=== PATIENT | male | born 1955 | race Caucasian/White ===

== ENCOUNTER → 2018-05-16 09:14 | Outpatient (CLI) | payer OTHER, SELFPAY ==
[2018-05-16 10:11] LABS: Add Manual Diff / Slide Review NO; Basophils Absolute Auto 0 /uL (0-100); Basophils Percent Auto 0.6 % (0-2); Eosinophils Absolute Auto 100 /uL (0-450); Eosinophils Percent Auto 2.1 % (2-4); Hemoglobin 14.7 g/dL (13.5-17.5); Lymphocytes Absolute Auto 2100 /uL (1100-4500); Lymphocytes Percent Auto 29.6 % (25-40); Mean Corpuscular HGB Conc 33.5 % (30-36); Mean Corpuscular Hemoglobin 30.8 PG (26-34); Monocytes Absolute Auto 800 /uL (0-900); Monocytes Percent Auto 11.9 % (3-14); Neutrophils Absolute Auto 3900 /uL (1500-7000); Neutrophils Percent Auto 55.8 % (50-75); Platelet Count 270 X10^3/uL (150-400); Red Blood Cell Count 4.78 X10^6/uL (4.5-5.9); Red Cell Distribution Width 13.4 % (11.6-14.8); White Blood Cell Count 6.9 X10^3/uL (4.5-11.0)
[2018-05-16 10:18] LABS: Alanine Aminotransferase 43 IU/L (21-72); Albumin 4.8 g/dL (3.5-5.0); Albumin Globulin Ratio 1.4 (1.0-2.8); Alkaline Phosphatase 36 U/L (38-126); Aspartate Aminotransferase 32 IU/L (17-59); BUN Creatinine Ratio 22.5 (6-22); Bilirubin Total 0.9 mg/dL (0.2-1.3); Blood Urea Nitrogen 27 mg/dL (9-20); Calcium 9.8 mg/dL (8.4-10.2); Carbon Dioxide 24 mmol/L (22-32); Chloride 100 mmol/L (98-107); Cholesterol 260 mg/dL (140-199); Estimated Glomerular Filt Rate > 60.0 mL/min (>60); Globulin 3.4 g/dL (1.7-4.1); Glucose 110 mg/dL (80-110); HDL Cholesterol 92 mg/dL (40-60); HEMOLYSIS < 15 (0-50); LDL Cholesterol Calculated 155 mg/dL (<100); Potassium 4.1 mmol/L (3.4-5.1); Sodium 136 mmol/L (137-145); Total Protein 8.2 g/dL (6.3-8.2); Triglycerides 67 mg/dL (35-150)
== END ==
PROVIDERS: PCP Family Medicine; Visit Provider Family Medicine
DX: E78.2 Mixed hyperlipidemia (principal)
CPT/HCPCS: 36415; 80053; 80061; 85025

== ENCOUNTER → 2018-10-23 17:16 | Outpatient (CLI) | payer OTHER, SELFPAY ==
[2018-10-23 17:37] LABS: Add Manual Diff / Slide Review NO; Basophils Absolute Auto 0 /uL (0-100); Basophils Percent Auto 0.5 % (0-2); Eosinophils Absolute Auto 100 /uL (0-450); Hematocrit 43.9 % (41-53); Lymphocytes Absolute Auto 2000 /uL (1100-4500); Lymphocytes Percent Auto 24.8 % (25-40); Mean Corpuscular HGB Conc 34.2 % (30-36); Mean Corpuscular Hemoglobin 30.4 PG (26-34); Monocytes Absolute Auto 700 /uL (0-900); Neutrophils Absolute Auto 5200 /uL (1500-7000); Neutrophils Percent Auto 64.7 % (50-75); Platelet Count 247 X10^3/uL (150-400); Red Blood Cell Count 4.94 X10^6/uL (4.5-5.9); Red Cell Distribution Width 12.6 % (11.6-14.8); White Blood Cell Count 8.1 X10^3/uL (4.5-11.0)
[2018-10-23 17:51] LABS: Alanine Aminotransferase 113 IU/L (21-72); Albumin 5.1 g/dL (3.5-5.0); Albumin Globulin Ratio 1.6 (1.0-2.8); Alkaline Phosphatase 47 U/L (38-126); Aspartate Aminotransferase 76 IU/L (17-59); BUN Creatinine Ratio 22.2 (6-22); Bilirubin Total 0.9 mg/dL (0.2-1.3); Blood Urea Nitrogen 20 mg/dL (9-20); Calcium 10.1 mg/dL (8.4-10.2); Carbon Dioxide 22 mmol/L (22-32); Chloride 95 mmol/L (98-107); Estimated Glomerular Filt Rate > 60.0 mL/min (>60); Globulin 3.2 g/dL (1.7-4.1); Glucose 84 mg/dL (80-110); HEMOLYSIS < 15 (0-50); Magnesium 1.4 mg/dL (1.6-2.3); Potassium 3.9 mmol/L (3.4-5.1); Sodium 133 mmol/L (137-145); Total Protein 8.3 g/dL (6.3-8.2)
[2018-10-23 18:21] LABS: Thyroid Stimulating Hormone 1.91 uIU/mL (0.47-4.68)
== END ==
PROVIDERS: PCP Family Medicine; Visit Provider Family Medicine
DX: I45.9 Conduction disorder, unspecified (principal); Z13.0 Encounter for screening for diseases of the blood and blood-forming organs and certain disorders involving the immune mechanism; Z13.1 Encounter for screening for diabetes mellitus; Z13.6 Encounter for screening for cardiovascular disorders
CPT/HCPCS: 36415; 80053; 83735; 84443; 85025; 93005; 93010

== ENCOUNTER 2018-11-08 06:47 | Day surgery (SDC) | payer OTHER, SELFPAY ==
[2018-11-08] MEDS: PROPARACAINE 0.5% OPHTH SOL 2 DROPS EYE-OP (07:46)
[2018-11-08] MEDS: CATARACT EYE COMPOUND (10 DROPS/SYRINGE) 3 DROPS EYE-OP (07:50)
[2018-11-08 07:55] VITALS: BP 150/81; PULSE 77; RESP 16; TEMP 36.6; O2SAT 100; BMI 29.2
--- NOTE | 2018-11-08 08:27 | PM.PREOP ---
Pre-operative Note Interval Note History & Physical reviewed/Exam performed by Physician: Yes Changes to H&P: No
[2018-11-08] MEDS: PHENYLEPHRINE/LIDOCAINE VIAL (OR) 0.2 ML EYE-OP (08:51)
[2018-11-08] MEDS: LIDOCAINE 2% INJ SDV 2 ML INJ (08:51)
[2018-11-08] MEDS: BALANCED SALT IRRIG SOLN NO.2 500 ML, EPINEPHrine 1 MG IRR (08:52)
[2018-11-08] MEDS: TETRACAINE 0.5% OPHTH DROPS 4 ML 2 DROPS EYE-OP (08:53)
[2018-11-08] MEDS: CHONDROIDTIN/SOD HYALURONATE 1.05 ML SYRINGE INTRAOCULA (08:54)
[2018-11-08] MEDS: BALANCED SALT IRRIG SOLN NO.2 15 ML 5 ML IRR (08:54)
[2018-11-08] MEDS: MOXIFLOXACIN/PF 5 MG/ML VIAL EYE-OP (08:55)
--- NOTE | 2018-11-08 09:20 | P.OP_ITS ---
Procedure & Clinicians Procedure: Cataract extraction with intraocular lens implant, left Same procedure as scheduled: Yes Indications: Visually significant age related nuclear sclerosis, left Surgeon: Terry Goode Click Yes if Unassisted: Yes Anesthesia Type: MAC +/- Operative Notes Procedure in detail: The patient was brought to the operating suite. The correct patient, surgical site and lens were confirmed. 0.5 % tetracaine drops were placed in the left eye. The patient was prepped and draped in the typical rachel rile manner. A lid speculum was placed in the eye. 2% lidocaine was placed on the eye. A paracentesis port was created with a side-port blade. 0.1 mL of 1% preservative free lidocaine with phenylephrine was injected into the anterior chamber. Viscoelastic was injected into the anterior chamber. A 2.6mm keratome was used to create a clear corneal temporal incision. Cystotome and Utrata forceps were used to create a continuous curvilinear capsulorrhexis. Balanced salt solution was used to hydrodissect the nucleus. Phacoemulsification was used to remove the lens. The capsular bag was inflated with viscoelastic. A Pineda ZCBOO +20.5D lens was inserted into the capsule. Viscoelastic was removed and the wound hydrated. The wound was found to be leak free and the eye was assessed to be at normal physiologic pressure. 0.1mL Vigamox was injected into the anterior chamber. The lid speculum was removed and the patient left the operating room in excellent condition. Complications: none Condition: stable Disposition: same day surgery
[2018-11-08 09:35] VITALS: BP 115/69; PULSE 68; RESP 20; TEMP 36.9; O2SAT 95
== END 2018-11-08 09:50 | disposition home or self-care (01) ==
PROVIDERS: PCP Family Medicine; Visit Provider Ophthalmology
PROC: (CPT 66984; principal; 2018-11-08 08:45)
DX: H25.12 Age-related nuclear cataract, left eye (principal); H25.11 Age-related nuclear cataract, right eye; H35.372 Puckering of macula, left eye; I10 Essential (primary) hypertension; E78.5 Hyperlipidemia, unspecified
CPT/HCPCS: 66984; J0171; J2250; J3010

== ENCOUNTER → 2018-11-14 09:05 | Outpatient (CLI) | payer OTHER, SELFPAY ==
--- NOTE | 2018-12-17 09:21 | PM.CARDMON.1 ---
Etl Manager Report Referral & Results Date Patient Seen: 11/14/18 Requesting provider: Nick Mitchell Indication: Palpitations Duration of monitoring (days): 14 Diary information: There were 0 diary entries from the patient but 149 different triggers. The triggers were associated with a variety of dysrhythmias including SVT, sinus rhythm, possible junctional rhythm, ventricular bigeminy, ventricular trigeminy, PVCs, and PACs. Data: Minimum heart rate identified was 52 beats per minute at 03:06 on 11/15/2018 Maximum sinus heart rate was 139 beats per minute at 01:12 30 17:00 on November 26, 2018 Maximum overall heart rate was 171 beats per minute at 13:17 on 11/15/2018 during a 1 hour 6 minutes run of SVT Less than 1% of identified beats were supraventricular ectopic in origin Approximately 2.3% of identified beats were ventricular ectopic in origin Patient did have 3 supraventricular runs with the longest and fastest being the above-listed run Impression: Patient with episodes of SVT as above Patient also with significant ventricular dysrhythmia with simple PVCs as well as runs of ventricular bigeminy and trigeminy although these lasted only 37 seconds at longest The computer identified some junctional rhythm episodes that upon closer inspection do not appear to be junctional but rather sinus
== END ==
PROVIDERS: PCP Family Medicine; Visit Provider Family Medicine
DX: R00.2 Palpitations (principal)
CPT/HCPCS: 0296T; 0298T

== ENCOUNTER 2018-11-15 13:17 | Emergency (ER) | payer OTHER, SELFPAY ==
[2018-11-15 13:24] VITALS: BP 165/81; PULSE 105; RESP 16; TEMP 36.8; O2SAT 99; BMI 23.0
--- NOTE | 2018-11-15 13:25 | DI.RAD.S_ITS ---
PROCEDURE: XR CHEST 1V INDICATIONS: chest pain TECHNIQUE: One view of the chest was acquired. COMPARISON: [facility], MR, ANGIO ABDOMEN W&WO CONTRAST, 01/29/2014, 9:32. FINDINGS: Surgical changes and devices: Left-sided cardiac pacer/goiter is present. Lungs and pleura: Lungs are clear. No pleural effusions or pneumothorax. Mediastinum: Mediastinal contours appear normal. Heart size is normal. Bones and chest wall: No suspicious bony lesions. Overlying soft tissues appear unremarkable. IMPRESSION: No acute cardiopulmonary process is evident. Dictated by: Audie Otero M.D. on 11/15/2018 at 12:48 Approved by: Audie Otero M.D. on 11/15/2018 at 12:48
[2018-11-15 13:30] LABS: Add Manual Diff / Slide Review NO; Basophils Absolute Auto 100 /uL (0-100); Basophils Percent Auto 0.8 % (0-2); Eosinophils Absolute Auto 100 /uL (0-450); Eosinophils Percent Auto 1.1 % (2-4); Hematocrit 44.2 % (41-53); Hemoglobin 15.2 g/dL (13.5-17.5); Lymphocytes Absolute Auto 2100 /uL (1100-4500); Lymphocytes Percent Auto 25.3 % (25-40); Mean Corpuscular HGB Conc 34.3 % (30-36); Mean Corpuscular Hemoglobin 30.7 PG (26-34); Mean Corpuscular Volume 89.6 fL (80-100); Monocytes Absolute Auto 900 /uL (0-900); Monocytes Percent Auto 10.2 % (3-14); Neutrophils Absolute Auto 5300 /uL (1500-7000); Neutrophils Percent Auto 62.6 % (50-75); Platelet Count 246 X10^3/uL (150-400); Red Blood Cell Count 4.94 X10^6/uL (4.5-5.9); Red Cell Distribution Width 13.7 % (11.6-14.8); White Blood Cell Count 8.4 X10^3/uL (4.5-11.0)
[2018-11-15 13:41] LABS: INR 0.8 (0.9-1.3); Prothrombin Time 9.4 SECONDS (10.1-12.7)
[2018-11-15 13:44] LABS: PTT Partial Thromboplastin Tim 29 SECONDS (26.4-36.2)
[2018-11-15 13:51] LABS: Alanine Aminotransferase 133 IU/L (21-72); Albumin 5.1 g/dL (3.5-5.0); Albumin Globulin Ratio 1.5 (1.0-2.8); Alkaline Phosphatase 59 U/L (38-126); Aspartate Aminotransferase 94 IU/L (17-59); BUN Creatinine Ratio 20.8 (6-22); Bilirubin Total 0.9 mg/dL (0.2-1.3); Blood Urea Nitrogen 25 mg/dL (9-20); Calcium 10.2 mg/dL (8.4-10.2); Carbon Dioxide 18 mmol/L (22-32); Chloride 97 mmol/L (98-107); Creatine Kinase 201 U/L (55-170); Estimated Glomerular Filt Rate > 60.0 mL/min (>60); Globulin 3.5 g/dL (1.7-4.1); Glucose 109 mg/dL (80-110); HEMOLYSIS < 15 (0-50); Lipase 198 U/L (23-300); Potassium 4.1 mmol/L (3.4-5.1); Sodium 135 mmol/L (137-145); Total Protein 8.6 g/dL (6.3-8.2)
[2018-11-15 14:00] VITALS: BP 136/80; PULSE 84; RESP 20; O2SAT 97
[2018-11-15 14:02] LABS: Troponin I < 0.012 ng/mL (0.01-0.034)
[2018-11-15 14:07] LABS: CKMB % Relative Index 2.7 % (1.5-5.0); Creatine Kinase MB 5.41 ng/mL (<2.37)
[2018-11-15 14:30] VITALS: BP 119/77; PULSE 78; RESP 20; O2SAT 97
[2018-11-15 15:02] VITALS: BP 143/99; PULSE 81; RESP 23; O2SAT 100
--- NOTE | 2018-11-15 15:20 | ED.ARRPALP ---
HPI - Arrhythmia/Palpitations General Chief Complaint: Arrhythmia/Palpitations Stated Complaint: DIZZY AND HEART RACING Time Seen by Provider: 11/15/18 13:27 Source: patient and family Mode of arrival: ambulatory Limitations: no limitations History of Present Illness HPI narrative: Patient presents emergency department complaining of an episode of heart racing for approximately 30 minutes prior to arrival. He states he had a Holter monitor placed yesterday in our cardial abduct, and did record the episode, although he does not have a way to review the rhythm at this time. Patient denies any chest pain at the time. He states he did feel somewhat anxious. He has been having these episodes on and off for the last 3 weeks, and has seen Dr. Morales about this. 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 Patient states he feels completely normal. Related Data Home Medications Medication Instructions Recorded Confirmed gabapentin [Neurontin] 300 mg PO BID PRN 11/08/18 11/15/18 Co Q-10 1 cap PO DAILY 11/15/18 11/15/18 Vitamin B 1 tab PO DAILY 11/15/18 11/15/18 atorvastatin [Lipitor] 20 mg PO BEDTIME 11/15/18 11/15/18 ketorolac 1 drp OPHTHALMIC (EYE) DIRECTED 11/15/18 11/15/18 multivitamin 1 tab PO DAILY 11/15/18 11/15/18 prednisolone acetate 1 drp OPHTHALMIC (EYE) DIRECTED 11/15/18 11/15/18 Previous Rx's Medication Instructions Recorded amlodipine 5 mg tablet 5 mg PO BID #180 tab 02/27/18 losartan 50 mg tablet 50 mg PO BID #360 tab 02/27/18 metoprolol succinate 25 mg 25 mg PO BID #180 tab 02/27/18 tablet,extended release 24 hr spironolactone 25 mg tablet 25 mg PO BID #360 tab 02/27/18 Allergies Allergy/AdvReac Type Severity Reaction Status Date / Time No Known Drug Allergies Allergy Verified 11/15/18 13:24 Review of Systems Constitutional Constitutional: Denies chills, Denies fatigue, Denies fever(s), Denies frequent falls, Denies lethargy and Denies weakness Eyes Eyes: Denies change in vision, Denies eye discharge, Denies irritation and Denies loss of vision ENT Ears, Nose, Mouth, and Throat: Denies change in voice, Denies dizziness, Denies neck pain, Denies sore throat and Denies throat swelling Cardiovascular Cardiovascular: Denies chest pain, Denies irregular heart rhythm, Denies lightheadedness, Denies palpitations, Denies dyspnea, Denies dyspnea on exertion and Denies orthopnea Respiratory Respiratory: Denies cough, Denies dyspnea, Denies dyspnea on exertion and Denies wheezing Gastrointestinal Gastrointestinal: Denies abdominal pain, Denies change in bowel habits, Denies diarrhea, Denies nausea and Denies vomiting Genitourinary Genitourinary: Denies hematuria, Denies flank pain, Denies urinary incontinence and Denies urinary urgency Musculoskeletal Musculoskeletal: Denies back pain, Denies muscle weakness, Denies neck pain, Denies numbness and Denies tingling Integumentary/Breasts Skin/Breast: Denies pruritus, Denies erythema, Denies rash and Denies wounds Neurologic Neurologic: Denies behavioral changes, Denies confusion, Denies dizziness, Denies frequent falls, Denies loss of vision, Denies numbness, Denies tingling and Denies weakness Psychiatric Psychiatric: Denies anxiety, Denies behavioral changes, Denies confusion, Denies depression, Denies homicidal ideation and Denies suicidal ideation Endocrine Endocrine: Denies fatigue, Denies flushing and Denies palpitations Hematologic/Lymphatic Hematologic/Lymphatic: Denies easy bruising Allergic/Immunologic Allergic/Immunologic: Denies urticaria, Denies throat swelling and Denies wheezing [facility] Medical History Palpitations (Acute) Ventricular premature beats (Acute) Surgical History No pertinent past surgical history (Acute) Social History household members: spouse Smoking Status: Former smoker alcohol intake: current Social History household members: spouse Smoking Status: Former smoker alcohol intake: current Exam Initial Vital Signs Initial Vital Signs: Vital Signs Temperature 98.3 F 11/15/18 13:24 Pulse Rate 105 H 11/15/18 13:24 Respiratory Rate 16 11/15/18 13:24 Blood Pressure 165/81 H 11/15/18 13:24 Pulse Oximetry 99 11/15/18 13:24 Const General: cooperative and well developed Nutritional Appearance: well nourished Orientation: alert, awake, oriented x3 and not confused [facility] Head: normocephalic and atraumatic Ears: external ears normal Nose: external nose normal and No nasal discharge Face and sinus: face symmetric and No dry mucous membranes Mouth: oral mucosae normal and moist mucous membranes Teeth and gingiva: dentition normal Eyes General: appearance normal, both eyes and all related structures Eyelids: eyelids normal Conjunctivae: conjunctivae normal Sclera: sclerae normal Pupils: PERRL EOM: EOM intact bilaterally Neck Neck: normal visual inspection, trachea midline, No lymphadenopathy, No midline deformity and No JVD Lymphatic: No lymphedema Chest Chest: normal inspection of the chest Resp Effort & Inspection: normal respiratory effort, able to speak in complete sentences, no respiratory distress and no use of accessory muscles Auscultation: clear to auscultation bilaterally, no rales, no rhonchi and no wheezes Cardio Rate: regular rate Rhythm: regular rhythm Heart Sounds: no click, no gallops, no murmurs and no rubs Pulses: normal peripheral pulses GI Inspection: non-distended Palpation: soft, no hepatosplenomegaly, No guarding, No pulsatile mass and No tender Auscultation: normal bowel sounds Back/Spine/Pelvis Back: No CVA tenderness Cervical Spine: cervical ROM normal and No pain with cervical ROM Thoracic/Lumbar Spine: thoracic and lumbar spine normal to inspection Skin General: no rashes or lesions noted, No jaundice and No petechiae Neuro General: alert, oriented x3, gait normal and no focal motor deficits Speech: speech normal Extrem General: full ROM, no clubbing, cyanosis or edema, no pedal edema and no calf tenderness Psych Appearance: well kempt Mental Status: mental status grossly normal Attitude: cooperative Thought Content: normal and suicidality Judgment: judgment good Course Course Course Narrative: Patient was found to be in normal sinus rhythm with a normal rate upon arrival in the emergency department. He was worked up with laboratory studies, which were unremarkable. Twelve lead EKG was also unremarkable, other than occasional PVCs. The patient was kept on the alarm security or surveillance monitor in the emergency department, and was found to remain in normal sinus rhythm. The patient was without complaints during his stay, and reported feeling better. He has already been established with a Holter monitor, which was placed yesterday. I have checked with the respiratory and cardiac department, who has stated there is no way to interrogate the Holter monitor until the entire thing is sent in for evaluation. As such, we have not been able to determine what sort of rhythm the patient was in during the episode of racing heart. We have discussed home management of the symptoms, as well as the usual indications for return. Orders Ordered: ED Orders 11/15/18 13:20 EKG-12 Lead Stat 11/15/18 13:25 XR chest 1V Stat Complete Blood Count AUTO DIFF Stat Comprehensive Metabolic Panel Stat Lipase Stat Partial Thromboplastin Time Stat Prothrombin Time INR Stat Troponin & CK Cardiac Panel Stat Vital Signs Vital signs: Vital Signs - 8 hr 11/15/18 13:24 11/15/18 14:00 11/15/18 14:30 Temperature 98.3 F Pulse Rate 105 H 84 78 Respiratory Rate 16 20 20 Blood Pressure 165/81 H Blood Pressure [Right Arm] 136/80 119/77 Pulse Oximetry 99 97 97 11/15/18 15:02 Temperature Pulse Rate 81 Respiratory Rate 23 Blood Pressure Blood Pressure [Right Arm] 143/99 H Pulse Oximetry 100 MDM - Arrhythmia/Palpitations Medical Records Attestation: I reviewed the patient's medical records. Lab Data Attestation: I reviewed the patient's lab results. Result diagrams: 11/15/18 13:25 11/15/18 13:25 Labs: Lab Results 11/15/18 11/15/18 11/15/18 Range/Units 13:25 13:25 13:25 WBC 8.4 (4.5-11.0) X10^3/uL RBC 4.94 (4.5-5.9) X10^6/uL Hgb 15.2 (13.5-17.5) g/dL Hct 44.2 (41-53) % MCV 89.6 (80-100) fL MCH 30.7 (26-34) PG MCHC 34.3 (30-36) % RDW 13.7 (11.6-14.8) % Plt Count 246 (150-400) X10^3/uL Neut % (Auto) 62.6 (50-75) % Lymph % (Auto) 25.3 (25-40) % [place] % (Auto) 10.2 (3-14) % Eos % (Auto) 1.1 L (2-4) % Baso % (Auto) 0.8 (0-2) % Neut # (Auto) 5300 (7990-2632) /uL Lymph # (Auto) 2100 (7846-7024) /uL [place] # (Auto) 900 (0-900) /uL Eos # (Auto) 100 (0-450) /uL Baso # (Auto) 100 (0-100) /uL PT 9.4 L (10.1-12.7) SECONDS INR 0.8 L (0.9-1.3) APTT 29 (26.4-36.2) SECONDS Sodium 135 L (137-145) mmol/L Potassium 4.1 (3.4-5.1) mmol/L Chloride 97 L (98-107) mmol/L Carbon Dioxide 18 L (22-32) mmol/L BUN 25 H (9-20) mg/dL Creatinine 1.20 (0.66-1.25) mg/dL Estimated GFR > 60.0 (>60) mL/min BUN/Creatinine Ratio 20.8 (6-22) Glucose 109 (80-110) mg/dL Calcium 10.2 (8.4-10.2) mg/dL Total Bilirubin 0.9 (0.2-1.3) mg/dL AST 94 H (17-59) IU/L ALT 133 H (21-72) IU/L Alkaline Phosphatase 59 (38-126) U/L Total Creatine Kinase 201 H (55-170) U/L CK-MB (CK-2) 5.41 H (<2.37) ng/mL CK-MB (CK-2) Rel Index 2.7 (1.5-5.0) % Troponin I < 0.012 (0.01-0.034) ng/mL Total Protein 8.6 H (6.3-8.2) g/dL Albumin 5.1 H (3.5-5.0) g/dL Globulin 3.5 (1.7-4.1) g/dL Albumin/Globulin Ratio 1.5 (1.0-2.8) Lipase 198 (23-300) U/L Imaging Data Chest x-ray: Radiologist's impression: PROCEDURE: XR CHEST 1V INDICATIONS: chest pain TECHNIQUE: One view of the chest was acquired. COMPARISON: [facility], MR, ANGIO ABDOMEN W&WO CONTRAST, 01/29/2014, 9:32. FINDINGS: Surgical changes and devices: Left-sided cardiac pacer/goiter is present. Lungs and pleura: Lungs are clear. No pleural effusions or pneumothorax. Mediastinum: Mediastinal contours appear normal. Heart size is normal. Bones and chest wall: No suspicious bony lesions. Overlying soft tissues appear unremarkable. IMPRESSION: No acute cardiopulmonary process is evident. Dictated by: Audie Otero M.D. on 11/15/2018 at 12:48 Approved by: Audie Otero M.D. on 11/15/2018 at 12:48 ECG Data Attestation: I personally reviewed and interpreted this ECG as follows: (See below) Interpretation: Twelve lead EKG performed November 15, 2018 at 1:20 p.m., as follows: Regular ventricular rhythm with a rate of 93 beats per minute RI interval 171 millisecond QRS duration 106 millisecond QTC interval 385 milliseconds Occasional ectopy No significant ST T wave changes Interpretation: Normal sinus rhythm with frequent PVCs; normal axis; no signs of acute ischemia; abnormal EKG as interpreted by ED MD. Discharge Plan Departure Patient Disposition: Home Clinical Impression: Palpitations, Ventricular premature beats Discharge Date/Time: 11/15/18 15:32 Instructions: DI for Arrhythmias Activity Restrictions/Additional Instructions: Your labs look good, as does your EKG. Unfortunately, there is no way to interrogate your Holter monitor until the entire thing is sent in for evaluation. If you have any further episodes of tachycardia that do not seem to be resolving, or if you become severely lightheaded or you faint, or if you have chest pain or shortness of breath associated with the racing heart, please come back to the emergency department. Prescriptions: No Action amlodipine [Norvasc] 5 mg tablet 5 mg PO BID Qty: 180 RF: 3 losartan 50 mg tablet 50 mg PO BID Qty: 360 RF: 3 metoprolol succinate [Toprol XL] 25 mg tablet extended release 24 hr 25 mg PO BID Qty: 180 RF: 3 spironolactone 25 mg tablet 25 mg PO BID Qty: 360 RF: 3 gabapentin [Neurontin] 300 mg capsule 300 mg PO BID PRN (Reason: nerve pain) RF: 0 ketorolac 0.5 % Drops 1 drp OPHTHALMIC (EYE) DIRECTED RF: 0 prednisolone acetate 1 % Drops,Suspension 1 drp OPHTHALMIC (EYE) DIRECTED RF: 0 atorvastatin [Lipitor] 20 mg tablet 20 mg PO BEDTIME RF: 0 multivitamin Tablet 1 tab PO DAILY RF: 0 Co Q-10 1 cap PO DAILY RF: 0 Vitamin B 1 tab PO DAILY RF: 0 Referrals: Nick Mitchell MD [Primary Care Provider] -
[2018-11-15 15:31] VITALS: BP 143/99; PULSE 69; RESP 20; O2SAT 99
== END 2018-11-15 15:32 | disposition home or self-care (01) ==
PROVIDERS: Emergency Provider Emergency Medicine; PCP Family Medicine
DX: R00.2 Palpitations (principal); I49.3 Ventricular premature depolarization
CPT/HCPCS: 36591; 71045; 80053; 82550; 82553; 83690; 84484; 85025; 85610; 85730; 93005; 99283; 99285

== ENCOUNTER → 2019-03-14 09:54 | Outpatient (CLI) | payer MEDICARE, SELFPAY ==
--- NOTE | 2019-03-14 09:57 | DI.US.S_ITS ---
PROCEDURE: US ABDOMEN COMPLETE INDICATIONS: ABN LFT'S TECHNIQUE: Real-time scanning was performed of the abdominal and retroperitoneal organs, with image documentation. COMPARISON: None. FINDINGS: Liver: Liver is diffusely increased in echogenicity. No focal hepatic abnormalities identified. Normal hepatic size. Gallbladder: No gallstones identified. Normal gallbladder wall. No pericholecystic fluid. Negative sonographic Grullon sign. Biliary ducts: Intrahepatic bile ducts are non-dilated. Extrahepatic bile duct caliber measures 3.7 mm. Normal is 6-7 mm or less in diameter, or 10 mm or less post-cholecystectomy. Pancreas: Visualized portions of the pancreas are sonographically normal. Spleen: Spleen is normal in size and homogeneous in echotexture. Kidneys: Kidneys are normal in size and echotexture. Right kidney measures 10.5 cm long; left kidney measures 10.1 cm long. No hydronephrosis or nephrolithiasis. No solid masses. Aorta: Visualized aorta is normal in caliber at less than 3 cm. Iliacs: Proximal common iliac arteries are normal in caliber at less than 2.5 cm. IVC: Intrahepatic inferior vena cava is patent. Miscellaneous: No free abdominal fluid. IMPRESSION: Increased hepatic echogenicity noted possibly related to hepatic steatosis but other sources of hepatocellular disease including hepatic cirrhosis cannot be excluded. Recommend clinical correlation. Dictated by: Silvestre MERCADO Interpreted: Johanny Schaefer MD on 03/14/2019 at 11:30 Approved by: Johanny Schaefer M.D. on 03/14/2019 at 18:27
== END ==
PROVIDERS: PCP Family Medicine; Visit Provider Family Medicine
DX: R94.5 Abnormal results of liver function studies (principal); E78.2 Mixed hyperlipidemia; Z12.5 Encounter for screening for malignant neoplasm of prostate
CPT/HCPCS: 36415; 76700; 80061; G0103

== ENCOUNTER → 2019-03-14 10:20 | Outpatient (CLI) | payer MEDICARE, SELFPAY ==
[2019-03-14 11:15] LABS: Cholesterol 262 mg/dL (140-199); HDL Cholesterol 91 mg/dL (40-60); LDL Cholesterol Calculated 147 mg/dL (<100); Triglycerides 120 mg/dL (35-150)
[2019-03-14 11:47] LABS: Prostate Specific Antigen Scrn 2.95 ng/mL (0.1-4.0)
== END ==
PROVIDERS: PCP Family Medicine; Visit Provider Family Medicine
DX: E78.2 Mixed hyperlipidemia (principal)
CPT/HCPCS: 36415; 80061; G0103

== ENCOUNTER → 2019-07-18 08:45 | Outpatient (CLI) | payer MEDICARE, SELFPAY ==
[2019-07-18 10:37] LABS: Alanine Aminotransferase 33 IU/L (<50); Albumin 4.5 g/dL (3.5-5.0); Albumin Globulin Ratio 1.6 (1.0-2.8); Alkaline Phosphatase 34 U/L (38-126); Aspartate Aminotransferase 39 IU/L (17-59); Bilirubin Total 0.5 mg/dL (0.2-1.3); Bilirubin Unconjugated 0.3 mg/dL (0.0-1.1); Cholesterol 176 mg/dL (140-199); Globulin 2.9 g/dL (1.7-4.1); HDL Cholesterol 54 mg/dL (40-60); HEMOLYSIS < 15 (0-50); LDL Cholesterol Calculated 109 mg/dL (<100); Total Protein 7.4 g/dL (6.3-8.2); Triglycerides 67 mg/dL (35-150)
== END ==
PROVIDERS: PCP Family Medicine; Referring Provider Family Medicine; Visit Provider Family Medicine
DX: R94.5 Abnormal results of liver function studies (principal); E78.2 Mixed hyperlipidemia
CPT/HCPCS: 36415; 80061; 80076

== ENCOUNTER → 2020-01-13 09:44 | Outpatient (CLI) | payer MEDICARE, SELFPAY ==
[2020-01-13 10:34] LABS: Add Manual Diff / Slide Review NO; Basophils Absolute Auto 100 /uL (0-100); Basophils Percent Auto 0.9 % (0-2); Eosinophils Absolute Auto 200 /uL (0-450); Eosinophils Percent Auto 2.7 % (2-4); Hemoglobin 15.7 g/dL (13.5-17.5); Lymphocytes Absolute Auto 1400 /uL (1100-4500); Lymphocytes Percent Auto 22.7 % (25-40); Mean Corpuscular HGB Conc 33.5 % (30-36); Mean Corpuscular Hemoglobin 29.1 PG (26-34); Mean Corpuscular Volume 86.7 fL (80-100); Monocytes Absolute Auto 600 /uL (0-900); Monocytes Percent Auto 10.1 % (3-14); Neutrophils Absolute Auto 4100 /uL (1500-7000); Neutrophils Percent Auto 63.6 % (50-75); Platelet Count 300 X10^3/uL (150-400); Red Blood Cell Count 5.42 X10^6/uL (4.5-5.9); Red Cell Distribution Width 13.3 % (11.6-14.8); White Blood Cell Count 6.4 X10^3/uL (4.5-11.0)
[2020-01-13 11:15] LABS: BUN Creatinine Ratio 21.5 (6-22); Blood Urea Nitrogen 20 mg/dL (9-20); Calcium 10.1 mg/dL (8.4-10.2); Carbon Dioxide 30 mmol/L (22-32); Chloride 99 mmol/L (98-107); Estimated Glomerular Filt Rate > 60.0 mL/min (>60); Glucose 112 mg/dL (80-110); HEMOLYSIS 16 (0-50); Potassium 4.9 mmol/L (3.4-5.1); Sodium 135 mmol/L (137-145)
== END ==
PROVIDERS: PCP Family Medicine; Referring Provider Family Medicine; Visit Provider Family Medicine
DX: I10 Essential (primary) hypertension (principal)
CPT/HCPCS: 36415; 80048; 85025

== ENCOUNTER → 2020-06-29 08:00 | Outpatient (CLI) | payer MEDICARE, SELFPAY ==
[2020-06-29 09:09] LABS: Alanine Aminotransferase 42 IU/L (<50); Albumin 4.4 g/dL (3.5-5.0); Albumin Globulin Ratio 1.5 (1.0-2.8); Alkaline Phosphatase 39 U/L (38-126); Aspartate Aminotransferase 39 IU/L (17-59); BUN Creatinine Ratio 21.3 (6-22); Bilirubin Total 0.5 mg/dL (0.2-1.3); Blood Urea Nitrogen 20 mg/dL (9-20); Calcium 9.6 mg/dL (8.4-10.2); Carbon Dioxide 26 mmol/L (22-32); Chloride 103 mmol/L (98-107); Cholesterol 202 mg/dL (140-199); Estimated Glomerular Filt Rate > 60.0 mL/min (>60); Glucose 116 mg/dL (80-110); HDL Cholesterol 47 mg/dL (40-60); HEMOLYSIS < 15 (0-50); LDL Cholesterol Calculated 144 mg/dL (<100); Potassium 4.3 mmol/L (3.4-5.1); Sodium 137 mmol/L (137-145); Total Protein 7.4 g/dL (6.3-8.2); Triglycerides 54 mg/dL (35-150)
[2020-06-29 09:34] LABS: Prostate Specific Antigen Scrn 2.17 ng/mL (0.1-4.0)
== END ==
PROVIDERS: PCP Internal Medicine; Referring Provider Internal Medicine; Visit Provider Internal Medicine
DX: E78.2 Mixed hyperlipidemia (principal); Z12.5 Encounter for screening for malignant neoplasm of prostate; I10 Essential (primary) hypertension; R79.89 Other specified abnormal findings of blood chemistry
CPT/HCPCS: 80053; 80061; G0103

== ENCOUNTER → 2020-10-05 08:02 | Outpatient (CLI) | payer MEDICARE, SELFPAY ==
[2020-10-05 10:52] LABS: COVID19 -Nasal RAPID Negative (Negative)
== END ==
PROVIDERS: PCP Internal Medicine; Visit Provider Student in an Organized Health Care Education/Training Program
DX: Z01.812 Encounter for preprocedural laboratory examination (principal); Z20.822 Contact with and (suspected) exposure to COVID-19
CPT/HCPCS: 87635; C9803

== ENCOUNTER 2020-10-07 07:28 | Day surgery (SDC) | payer MEDICARE, SELFPAY ==
--- NOTE | 2020-10-06 19:36 | PM.PREOP ---
Pre-operative Note COVID-19 COVID-19 status: Negative Interval Note History & Physical reviewed/Exam performed by Physician: Yes Changes to H&P: No
--- NOTE | 2020-10-06 19:38 | P.OP_ITS ---
Operative Date/Time/Diagnoses Date of procedure: 10/07/20 Time of procedure: 09:45 Procedure & Clinicians Procedure: Preoperative diagnoses: 1. Right nuclear sclerotic and cortical cataract. 2. Status post LASIK Postoperative diagnoses: 1. Cataract removed by phacoemulsification with placement of posterior chamber intraocular lens. Procedure: Phacoemulsification with posterior chamber intraocular lens implant Surgeon: Cherelle Block MD Complications: None Specimen: None Implant: DIBOO+19.5 Blood loss: None Anesthesia: Retrobulbar with monitored standby Description of procedure: Patient presents with a complaint of decreased vision due to cataract which is affecting activities of daily living. The patient wants surgery to improve vision. The patient was taken to the operating room and given IV sedation. A retrobulbar block consisting of 6 cc of 2% xylocaine without epinephrine mixed half and half with 0.5% Marcaine with 1 cc of hyaluronidase added is placed between the medial and lateral 1/3 of the inferior orbital rim. The eye is manually massaged for 30 sec, prepped using Betadine solution, and draped in the usual sterile fashion. Temporal approach was made, a 1 mm side-port incision was made 90? from the proposed clear corneal incision position. Phenylephrine 1.5% mixed with 1% xylocaine 0.2 cc was placed into the anterior chamber. Viscoat followed by Radha was then placed. A 2.6 mm clear incision with a 2.6 mm blade was placed. A 360 degree capsulorrhexis style capsulotomy was then performed with a cystitome needle on a Healon. Hydrodelineation and hydrodissection were performed. The phacoemulsification unit is introduced, and sculpting notice used to groove the central lens. It is then removed in chopping mode. Epi nucleus is removed with epinuclear mode and irrigation aspiration was used to remove the peripheral cortex. The posterior capsule is polished. The intraocular lens is selected, inspected, power confirmed, and placed in the posterior chamber. The wound was stromally hydrated and tested for leaks, there was none and it was left sutureless. Vigamox 0.1 cc was placed into the anterior chamber. Kenalog 0.2 cc was placed in the superior subconjunctival space. A drop of antibiotic and was placed and the eye was patched and shielded. The patient was stable and returned to the recovery room in excellent condition. Dictated by: Cherelle Block MD Copy to: [facility] Same procedure as scheduled: Yes
[2020-10-07 07:50] VITALS: BP 174/89; PULSE 82; RESP 16; TEMP 36.6; O2SAT 100; BMI 23.0
[2020-10-07] MEDS: PROPARACAINE 0.5% OPHTH SOL 2 DROPS EYE-OP (07:55)
[2020-10-07] MEDS: CATARACT EYE COMPOUND (10 DROPS/SYRINGE) 3 DROPS EYE-OP (07:55)
--- NOTE | 2020-10-07 09:31 | SUR.OPER ---
Supine on eye stretcher, head on extension cradle secured with tape. Arms tucked at sides with blanket. Pillow under knees.
[2020-10-07] MEDS: BALANCED SALT IRRIG SOLN NO.2 500 ML, EPINEPHrine 1 MG IRR (10:07)
[2020-10-07] MEDS: PHENYLEPHRINE/LIDOCAINE VIAL (OR) 0.2 ML EYE-OP (10:08)
[2020-10-07] MEDS: MOXIFLOXACIN INJ 4 MG/0.8 ML VIAL 0.5 MG EYE-OP (10:08)
[2020-10-07] MEDS: LIDOCAINE 2% 4 ML, BUPIVACAINE 0.5% (PF) 4 ML, HYALURONIDASE 150 UNIT INJ (10:09)
[2020-10-07] MEDS: TRIAMCINOLONE 50 MG/5 ML VIAL INJ (10:09)
[2020-10-07] MEDS: CHONDROIDTIN/SOD HYALURONATE 1.05 ML SYRINGE INTRAOCULA (10:10)
[2020-10-07] MEDS: HYALURONATE SODIUM 10 MG/ML SYRINGE INJ (10:11)
[2020-10-07] MEDS: ERYTHROMYCIN OPHTH 1 GM OINT 1 APPLIC EYE-RIGHT (10:11)
[2020-10-07 10:35] VITALS: BP 169/77; PULSE 71; RESP 16; TEMP 36.2; O2SAT 100
--- NOTE | 2020-10-07 10:53 | SUR.PHASEII ---
1045-Pt up and ambulating gait steady, drinking coffee without problems, all dc instructions given and pt verbalizes understanding, dressed and ready to go, pt dcd via wc in stable condition with all belongings
== END 2020-10-07 10:47 | disposition home or self-care (01) ==
LOC: OR 07:29
PROVIDERS: PCP Internal Medicine; Referring Provider Ophthalmology; Visit Provider Ophthalmology
PROC: (CPT 66984; principal; 2020-10-07 09:45)
DX: H25.811 Combined forms of age-related cataract, right eye (principal); I10 Essential (primary) hypertension
CPT/HCPCS: 66984; J0171; J3301; J3470

== ENCOUNTER → 2021-02-08 09:34 | Outpatient (CLI) | payer MEDICARE, SELFPAY ==
[2021-02-08 12:05] LABS: Alanine Aminotransferase 38 IU/L (<50); Albumin 4.6 g/dL (3.5-5.0); Albumin Globulin Ratio 1.5 (1.0-2.8); Alkaline Phosphatase 44 U/L (38-126); Aspartate Aminotransferase 40 IU/L (17-59); BUN Creatinine Ratio 16.3 (6-22); Bilirubin Total 0.8 mg/dL (0.2-1.3); Blood Urea Nitrogen 14 mg/dL (9-20); Calcium 9.7 mg/dL (8.4-10.2); Carbon Dioxide 26 mmol/L (22-32); Chloride 98 mmol/L (98-107); Cholesterol 222 mg/dL (140-199); Estimated Glomerular Filt Rate > 60.0 mL/min (>60); Globulin 3.1 g/dL (1.7-4.1); Glucose 101 mg/dL (80-110); HDL Cholesterol 85 mg/dL (40-60); HEMOLYSIS < 15 (0-50); LDL Cholesterol Calculated 127 mg/dL (<100); Potassium 4.9 mmol/L (3.4-5.1); Sodium 133 mmol/L (137-145); Total Protein 7.7 g/dL (6.3-8.2); Triglycerides 51 mg/dL (35-150)
== END ==
PROVIDERS: PCP Internal Medicine; Referring Provider Internal Medicine; Visit Provider Internal Medicine
DX: E78.2 Mixed hyperlipidemia (principal); I10 Essential (primary) hypertension
CPT/HCPCS: 36415; 80053; 80061

== ENCOUNTER → 2022-12-22 06:44 | Outpatient (CLI) | payer MEDICARE, SELFPAY ==
--- NOTE | 2022-12-22 06:46 | DI.ECHO.S_ITS ---
[facility] +---------+ : : [address] : : : : [id number] : : : : Phone: [phone] Echocardiogram Report + + :Name: ARLETH VALDEZ Study Date: 12/22/2022 Height: 72 in : :[facility] ReadingLocation: Weight: 175 lb : : Gender: Male BSA: 2.0 m2 : :: 1955 Age: 67 yrs BP: 157/88 mmHg: :Reason For Study: Supraventricular Tachycardia : :Ordering Physician: CONNER, : :MARIA ELENA Muro Performed By: Ekaterina Davenport : :Referring: MARIA ELENA PRIETO : + + Interpretation Summary The ejection fraction is estimated to be 55-60%. Diastolic parameters suggest probable normal left ventricular diastolic function and normal filling pressures. The right ventricle is normal in size and function. No aortic regurgitation is present. Pulmonary artery pressures cannot be estimated because of the lack of a measurable TR jet velocity but the IVC suggests a CVP of around 3 mmHg. Procedure: A two-dimensional transthoracic echocardiogram with color flow and Doppler was performed. The study quality was technically adequate. The patient had an echocardiogram, but there is no comparison study available. The patient was in normal sinus rhythm during the exam. Left Ventricle: The left ventricle is normal in size. The ejection fraction is estimated to be 55-60%. Diastolic parameters suggest probable normal left ventricular diastolic function and normal filling pressures. Right Ventricle: The right ventricle is normal in size and function. Atria: The left atrial size is normal. Right atrial size is normal. There is no Doppler evidence for an interatrial shunt. Mitral Valve: The mitral valve leaflets appear mildly thickened, but open well. There is no mitral valve stenosis. There is trace mitral regurgitation. Aortic Valve: The aortic valve is trileaflet. The aortic valve opens well. There is no aortic valve stenosis. No aortic regurgitation is present. Tricuspid Valve: The tricuspid valve is normal. There is no tricuspid stenosis. There is a trace or physiologic amount of tricuspid regurgitation. Pulmonary artery pressures cannot be estimated because of the lack of a measurable TR jet velocity but the IVC suggests a CVP of around 3 mmHg. Pulmonic Valve: The pulmonic valve is not well visualized. There is no pulmonic valvular stenosis. There is trace pulmonic regurgitation. Great Vessels: The aortic root is normal size. The ascending aorta is at the upper limits of normal in size. The pulmonary artery is normal size. The IVC is of normal diameter and collapses greater than 50% with a sniff. This suggests a low right atrial pressure of 3 mm Hg. Pericardium/ Pleura There is no pericardial effusion. There is no pleural effusion. MMode/2D Measurements & Calculations LVIDd: 5.1 cm LVOT diam: 2.2 cm LVIDs: 3.7 cm Ao root diam: 3.0 cm FS: 27.5 % asc Aorta Diam: 3.6 cm EPSS: 0.40 cm IVSd: 0.90 cm LVPWd: 0.80 cm LV fitzpatrick. diameter/BSA (cm/m^2): 2.5 LV sys. diameter/BSA (cm/m^2): 1.8 LA A2 area: 20.3 cm2 RA long axis: 4.9 cm LA A4 area: 16.9 cm2 RA area: 17.3 cm2 LA length (vol): 6.1 cm RA vol: 51.8 ml LA vol: 47.9 ml RA : 25.7 ml/m2 LA vol index: 23.8 ml/m2 RVD1 (basal): 4.2 cm LVLs ap4: 6.9 cm LVLd ap2: 7.8 cm TAPSE_phl: 2.4 cm LVLs ap2: 6.9 cm Doppler Measurements & Calculations Ao V2 max: 129.3 cm/sec LVOT Max Trent: 80.4 cm/sec Ao V2 mean: 88.3 cm/sec LV V1 max P.6 mmHg Ao max P.0 mmHg LV V1 VTI: 20.0 cm Ao mean P.0 mmHg CAROLE(I,D): 2.4 cm2 Ao V2 VTI: 31.4 cm CAROLE(V,D): 2.4 cm2 sev ratio: 0.64 CAROLE indexed to BSA (cm^2/m^2): 1.2 MV E max trent: 68.9 cm/sec TR max trent: 258.0 cm/sec MV A max trent: 73.6 cm/sec TR max P.6 mmHg MV E/A: 0.94 PA V2 max: 89.3 cm/sec Med Peak E' Trent: 8.8 cm/sec PA V2 mean: 56.7 cm/sec E/E' med: 7.8 PA mean P.0 mmHg Lat Peak E' Trent: 10.7 cm/sec PA pr(Accel): 29.0 mmHg E/E' lat: 6.4 E/e' average: 7.1 MV dec time: 0.21 sec SV(LVOT): 76.0 ml AV VR_phl: 0.62 CAROLE(VTI)/BSA_phl: 1.2 Reading Physician:05:25 PM
[2022-12-22 08:49] LABS: Add Manual Diff / Slide Review NO; Basophils Absolute Auto 0 /uL (0-100); Basophils Percent Auto 0.9 % (0-2); Eosinophils Absolute Auto 100 /uL (0-450); Eosinophils Percent Auto 2.7 % (2-4); Hematocrit 46.4 % (41-53); Hemoglobin 15.7 g/dL (13.5-17.5); Lymphocytes Absolute Auto 2100 /uL (1100-4500); Mean Corpuscular HGB Conc 33.9 % (30-36); Mean Corpuscular Hemoglobin 29.5 PG (26-34); Monocytes Absolute Auto 600 /uL (0-900); Monocytes Percent Auto 11.1 % (3-14); Neutrophils Absolute Auto 2600 /uL (1500-7000); Neutrophils Percent Auto 47.3 % (50-75); Platelet Count 264 X10^3/uL (150-400); Red Blood Cell Count 5.33 X10^6/uL (4.5-5.9); Red Cell Distribution Width 14.1 % (11.6-14.8); White Blood Cell Count 5.4 X10^3/uL (4.5-11.0)
[2022-12-22 09:06] LABS: Alanine Aminotransferase 32 IU/L (<50); Albumin 4.3 g/dL (3.5-5.0); Albumin Globulin Ratio 1.3 (1.0-2.8); Alkaline Phosphatase 36 U/L (38-126); Aspartate Aminotransferase 28 IU/L (17-59); BUN Creatinine Ratio 18.3 (6-22); Bilirubin Total 0.9 mg/dL (0.2-1.3); Blood Urea Nitrogen 17 mg/dL (9-20); Calcium 9.4 mg/dL (8.4-10.2); Carbon Dioxide 26 mmol/L (22-32); Chloride 103 mmol/L (98-107); Cholesterol 231 mg/dL (140-199); Estimated Glomerular Filt Rate > 60 mL/min (>60); Globulin 3.3 g/dL (1.7-4.1); Glucose 104 mg/dL (80-110); HDL Cholesterol 54 mg/dL (40-60); HEMOLYSIS < 15 (0-50); LDL Cholesterol Calculated 163 mg/dL (<100); Potassium 4.5 mmol/L (3.4-5.1); Sodium 137 mmol/L (137-145); Total Protein 7.6 g/dL (6.3-8.2); Triglycerides 69 mg/dL (35-150)
[2022-12-22 09:36] LABS: TSH w/ Reflex to FT4 1.96 uIU/mL (0.47-4.68)
== END ==
PROVIDERS: PCP Internal Medicine; Referring Provider Internal Medicine; Visit Provider Internal Medicine
DX: E78.2 Mixed hyperlipidemia (principal); I47.10 Supraventricular tachycardia, unspecified; I10 Essential (primary) hypertension
CPT/HCPCS: 36415; 80053; 80061; 84443; 85025; 93306

== ENCOUNTER → 2023-01-12 09:31 | Outpatient (CLI) | payer MEDICARE, SELFPAY | PROVIDERS: PCP Internal Medicine; Referring Provider Internal Medicine; Visit Provider Internal Medicine | DX: I49.9 Cardiac arrhythmia, unspecified (principal) | CPT/HCPCS: 93246 ==

== ENCOUNTER → 2023-08-09 09:53 | Outpatient (CLI) | payer MEDICARE, SELFPAY ==
[2023-08-09 11:19] LABS: Alanine Aminotransferase 28 IU/L (<50); Albumin 4.6 g/dL (3.5-5.0); Albumin Globulin Ratio 1.6 (1.0-2.8); Alkaline Phosphatase 40 U/L (38-126); Aspartate Aminotransferase 30 IU/L (17-59); BUN Creatinine Ratio 18.8 (6-22); Blood Urea Nitrogen 19 mg/dL (9-20); Calcium 9.4 mg/dL (8.4-10.2); Carbon Dioxide 28 mmol/L (22-32); Chloride 103 mmol/L (98-107); Estimated Glomerular Filt Rate > 60 mL/min (>60); Globulin 2.9 g/dL (1.7-4.1); Glucose 117 mg/dL (80-110); HEMOLYSIS < 15 (0-50); Magnesium 2.1 mg/dL (1.6-2.3); Sodium 135 mmol/L (137-145); Total Protein 7.5 g/dL (6.3-8.2)
[2023-08-09 11:50] LABS: TSH w/ Reflex to FT4 2.01 uIU/mL (0.47-4.68)
== END ==
PROVIDERS: PCP Internal Medicine; Referring Provider Internal Medicine; Visit Provider Internal Medicine
DX: I47.10 Supraventricular tachycardia, unspecified (principal); R00.2 Palpitations
CPT/HCPCS: 36415; 80053; 83735; 84443

== ENCOUNTER 2023-08-29 08:56 | Day surgery (SDC) | payer MEDICARE, SELFPAY ==
--- NOTE | 2023-08-29 | PATH_ITS ---
[facility] Accession Number: [id number] No. of containers..01 Tissue . 01 Material submitted: . cecum - CECAL POLYP . 01 Diagnosis: CECAL POLYP: Tubular adenoma. SONNY 09/04/2023 1109 Local . 01 Electronically signed: . Miguel Nolan MD, PhD, Pathologist NPI- [id number] . 01 Gross description: . Received in formalin with two patient identifiers and cecal polyp, is a single martinez soft tissue fragment 0.2 cm in greatest dimension. Submitted entirely in cassette A1. ([id number]) /SONNY 08/30/2023 0903 Local . 01 Pathologist provided ICD-10: D12.0 . 01 CPT . 490791 Specimen Comment: A courtesy copy of this report has been sent to [phone] Performed at: [address] [facility] [id number] MD Lb Alas MD Phone: [phone]
[2023-08-29] MEDS: LACTATED RINGERS 1,000 ML 42 ML IV (09:05)
[2023-08-29 09:41] VITALS: BP 166/98; PULSE 95; RESP 16; TEMP 36.3; O2SAT 99
--- NOTE | 2023-08-29 10:10 | PM.HP.1 ---
History of Present Illness History of Present Illness Date Patient Seen: 08/29/23 Time Patient Seen: 10:10 Chief complaint: SDC Narrative: 68-year-old man here for screening colonoscopy. Last colonoscopy 2012 normal. No family history of intestinal cancer. No abdominal concerns today. [facility] Medical History Paroxysmal SVT (supraventricular tachycardia) Wears glasses Elevated liver function tests Mixed hyperlipidemia Essential hypertension Ventricular premature beats Palpitations Surgical History Anesthesia History of appendectomy (~1982) S/P cataract extraction No pertinent past surgical history Family History Father Cancer Hypertension Mother Hypertension History of heart disease Sister Stroke Social History household members: spouse Smoking Status: Never smoker alcohol intake: current Meds Home Medications and Allergies Home Medications Medication Instructions Recorded Confirmed Type Co Q-10 1 cap PO DAILY 11/15/18 08/29/23 History Vitamin B 1 tab PO DAILY 11/15/18 08/29/23 History multivitamin 1 tab PO DAILY 11/15/18 08/29/23 History cholecalciferol (vitamin D3) 1 tab PO DAILY 02/08/21 08/29/23 History spironolactone 25 mg tablet 25 mg PO DAILY #90 tabs 09/12/22 08/29/23 Rx metoprolol succinate 25 mg 25 mg PO DAILY #180 tabs 09/29/22 08/29/23 Rx tablet,extended release 24 hr amlodipine 10 mg tablet 10 mg PO DAILY #90 tabs 11/14/22 08/29/23 Rx losartan 100 mg tablet 100 mg PO DAILY #90 tabs 12/14/22 08/29/23 Rx atorvastatin 20 mg tablet 20 mg PO DAILY #90 tabs 03/16/23 08/29/23 Rx clonazepam 0.5 mg tablet 0.5 mg PO BID #60 tabs 08/28/23 08/29/23 Rx Allergies Allergy/AdvReac Type Severity Reaction Status Date / Time No Known Drug Allergies Allergy Verified 08/29/23 09:27 Exam Vital Signs (past 8 hours): - 08/29/23 09:41 Temperature 97.3 F L Pulse Rate 95 H Respiratory Rate 16 Blood Pressure 166/98 H Pulse Oximetry 99 Oxygen Delivery Method Room Air Oxygen Delivery Method Room Air Narrative Exam Narrative: General adult man alert oriented no acute distress Chest nonlabored respiration Extremities warm well perfused Assessment & Plan Assessment & Plan narrative: The patient requires colorectal screening and colonoscopy is recommended. Technical details were discussed. Risks, benefits, alternatives explained. Risks including but not limited to myocardial infarction, aspiration, bleeding, pain, missed lesion, incomplete examination, need for further radiographic studies, intestinal injury, and need for major abdominal surgery were discussed. All questions were answered to their satisfaction, and they are in agreement with this plan.
[2023-08-29 10:37] VITALS: BP 109/66; PULSE 63; RESP 21; TEMP 36.8; O2SAT 97
[2023-08-29 10:42] VITALS: BP 101/66; PULSE 60; RESP 12; TEMP 36.7; O2SAT 98
[2023-08-29 10:49] VITALS: BP 102/64; PULSE 56; RESP 17; TEMP 36.7; O2SAT 98
--- NOTE | 2023-08-29 10:57 | P.OP.COLON_ITS ---
Operative Date/Time/Diagnoses Date of procedure: 08/29/23 Time of procedure: 10:57 Pre-op diagnosis: Colorectal screening Post-op diagnosis: other (Colonic polyp x1) Procedure & Clinicians Study performed: Colonoscopy polypectomy Same procedure as scheduled: Yes Indications: Colorectal screening Surgeon: Keny Major Procedure Notes Procedure in detail: The history and physical was performed/updated and the patient is ASA class is 2. The procedure was discussed in detail with the patient. Potential risks complications including infection, bleeding, missed diagnosis, perforation, need for surgery, and were explained. Their questions were answered and informed consent was obtained. Patient was brought to the procedure room and placed standard monitoring equipment. The patient's vital signs were monitored continuously throughout the entire procedure. Prior to starting time-out was performed. The patient was placed in the left lateral recumbent position. Procedural sedation was administered by anesthesia. Examination began with a thorough inspection of the perianal area there was no evidence of fissures, fistulae, external hemorrhoids or cutaneous malignancy. The colonoscopy scope was then placed into the anal canal and was advanced to the cecum, which was identified by the ileocecal valve, the appendiceal orifice and the confluence of the taenia. The scope was then slowly withdrawn examining colon thoroughly in all directions, irrigating it of any residual stool. The scope was retroflexed within the rectum The patient tolerated the procedure well. They will be discharged once criteria are met. The prep was of good/excellent quality. The withdrawl time was 6 minutes. FINDINGS * Ascending colon polyp 3 mm removed with biopsy forceps * Mild diverticulosis of descending colon. Specimen(s): other (Ascending colon polyp) Impression: Colonic polyp x1 Post-procedure Recommendations: High fiber diet Plan for aftercare: Follow-up dependent on pathology findings likely 5 years Disposition: same day surgery
== END 2023-08-29 11:05 | disposition home or self-care (01) ==
PROVIDERS: PCP Internal Medicine; Referring Provider Surgery; Visit Provider Surgery
PROC: 0DJD8ZZ Inspection of Lower Intestinal Tract, Via Natural or Artificial Opening Endoscopic (ICD-10-PCS; CPT 45378; principal; 2023-08-29 09:45)
DX: Z12.11 Encounter for screening for malignant neoplasm of colon (principal); K57.30 Diverticulosis of large intestine without perforation or abscess without bleeding; D12.0 Benign neoplasm of cecum
CPT/HCPCS: 45380; J2704

== ENCOUNTER 2023-12-11 15:10 | Emergency (ER) | payer MEDICARE, SELFPAY ==
[2023-12-11] VITALS (9 sets, daily range): BP systolic 167–202; BP diastolic 82–105; PULSE 82–155; RESP 13–24; TEMP 36.8; O2SAT 97–98; BMI 24.7
--- NOTE | 2023-12-11 15:21 | DI.RAD.S_ITS ---
PROCEDURE: XR CHEST 1V INDICATIONS: chest pain TECHNIQUE: One view of the chest was acquired. COMPARISON: [facility], CR, XR CHEST 1V, 11/15/2018, 13:32. FINDINGS: Surgical changes and devices: None. Lungs and pleura: Lungs are clear. No pleural effusions or pneumothorax. Mediastinum: Mediastinal contours appear normal. Heart size is normal. Bones and chest wall: No suspicious bony lesions. Overlying soft tissues appear unremarkable. IMPRESSION: No acute cardiopulmonary abnormalities or focal consolidation. Dictated by: Marco Antonio Rogers M.D. on 12/11/2023 at 15:55 Approved by: Marco Antonio Rogers M.D. on 12/11/2023 at 15:55
--- NOTE | 2023-12-11 15:29 | EKG_ITS ---
[facility] [id number] [address] Test Date: 2023-12-11 Pat Name: Quinn Keys Department: Room: Gender: Male Assistant Laboratory Director: TAMARA : 1955 Requested By: Order Number: [id number] Reading MD: Mychal Daley MD Measurements Intervals [place] Rate: 100 P: 46 [place]: 188 QRS: -14 QRSD: 102 T: 7 QT: 342 QTc: 441 Interpretive Statements Normal sinus rhythm Inferior infarct , age undetermined Possible Anterior infarct , age undetermined Electronically Signed On 12-11-2023 17:02:51 PDT by Mychal Daley MD
[2023-12-11 15:44] LABS: Add Manual Diff / Slide Review NO; Basophils Absolute Auto 100 /uL (0-100); Basophils Percent Auto 0.7 % (0-2); Eosinophils Absolute Auto 100 /uL (0-450); Eosinophils Percent Auto 0.6 % (2-4); Hematocrit 48.2 % (41-53); Hemoglobin 16.7 g/dL (13.5-17.5); Lymphocytes Absolute Auto 2300 /uL (1100-4500); Lymphocytes Percent Auto 22.9 % (25-40); Mean Corpuscular HGB Conc 34.7 % (30-36); Mean Corpuscular Hemoglobin 30.7 PG (26-34); Mean Corpuscular Volume 88.5 fL (80-100); Monocytes Absolute Auto 1100 /uL (0-900); Monocytes Percent Auto 11.2 % (3-14); Neutrophils Absolute Auto 6500 /uL (1500-7000); Neutrophils Percent Auto 64.6 % (50-75); Platelet Count 270 X10^3/uL (150-400); Red Blood Cell Count 5.45 X10^6/uL (4.5-5.9); Red Cell Distribution Width 13.2 % (11.6-14.8); White Blood Cell Count 10.1 X10^3/uL (4.5-11.0)
[2023-12-11 15:49] LABS: Alanine Aminotransferase 37 IU/L (<50); Albumin 4.7 g/dL (3.5-5.0); Albumin Globulin Ratio 1.4 (1.0-2.8); Alkaline Phosphatase 51 U/L (38-126); Aspartate Aminotransferase 37 IU/L (17-59); BUN Creatinine Ratio 20.4 (6-22); Bilirubin Total 0.9 mg/dL (0.2-1.3); Blood Urea Nitrogen 19 mg/dL (9-20); Calcium 9.5 mg/dL (8.4-10.2); Carbon Dioxide 21 mmol/L (22-32); Chloride 99 mmol/L (98-107); Creatine Kinase 137 U/L (55-170); Estimated Glomerular Filt Rate > 60 mL/min (>60); Globulin 3.4 g/dL (1.7-4.1); Glucose 102 mg/dL (80-110); HEMOLYSIS < 15 (0-50); Lipase 101 U/L (23-300); Magnesium 1.5 mg/dL (1.6-2.3); Potassium 3.6 mmol/L (3.4-5.1); Sodium 132 mmol/L (137-145); Total Protein 8.1 g/dL (6.3-8.2)
[2023-12-11 15:59] LABS: INR 0.9 (0.9-1.3); Prothrombin Time 10.5 SECONDS (9.4-12.5)
[2023-12-11 16:01] LABS: NT-proBNP (BNP-Adult 18+) 50 pg/mL (<125); Troponin I < 0.012 ng/mL (0.01-0.034)
[2023-12-11 16:02] LABS: PTT Partial Thromboplastin Tim 33 SECONDS (25.1-36.5)
--- NOTE | 2023-12-11 16:29 | ED.ARRPALP ---
HPI - Arrhythmia/Palpitations General Chief Complaint: Arrhythmia/Palpitations Stated Complaint: HBP, Rapid Heart Beat Time Seen by Provider: 12/11/23 16:29 Source: patient Mode of arrival: Ambulatory Limitations: no limitations History of Present Illness HPI narrative: Patient is a 68-year-old male with past medical history of hypertension hyperlipidemia comes into the ED from home for evaluation of palpitations, states that this has been an ongoing issue, intermittently over the past several months to weeks, states he has had Holter monitors and echoes in the past with no abnormal findings but does not have a health physics technician. Patient without any chest pain fever chills nausea vomiting abdominal pain or any other GI/ symptoms. Related Data Home Medications Medication Instructions Recorded Confirmed Co Q-10 1 cap PO DAILY 11/15/18 08/29/23 Vitamin B 1 tab PO DAILY 11/15/18 08/29/23 multivitamin 1 tab PO DAILY 11/15/18 08/29/23 cholecalciferol (vitamin D3) 1 tab PO DAILY 02/08/21 08/29/23 losartan 100 mg tablet 100 mg PO BID 12/11/23 12/11/23 spironolactone 25 mg tablet 25 mg PO BID 12/11/23 12/11/23 Previous Rx's Medication Instructions Recorded metoprolol succinate 25 mg 25 mg PO DAILY #180 tabs 09/29/22 tablet,extended release 24 hr amlodipine 10 mg tablet 10 mg PO DAILY #90 tabs 11/14/22 clonazepam 0.5 mg tablet 0.5 mg PO BID #60 tabs 08/28/23 alprazolam 0.25 mg tablet 0.25 mg PO TID PRN anxiety #10 tabs 11/02/23 atorvastatin 20 mg tablet 20 mg PO DAILY #90 tabs 11/07/23 Allergies Allergy/AdvReac Type Severity Reaction Status Date / Time No Known Drug Allergies Allergy Verified 08/29/23 09:27 Review of Systems Review of Systems Narrative: HEENT: Denies headache, eye drainage, eye irritation, head trauma, sore throat, voice change Cardiovascular: Denies any chest pain, palpitations, shortness of breath, tachycardia Respiratory: Denies any shortness of breath, cough, wheeze, stridor GI/: Denies any abdominal pain, nausea, vomiting, diarrhea, bright red blood per rectum, melanotic stools, urinary frequency, urinary retention, dysuria, hematuria MSK: Denies any joint pain, muscle pains, swelling Skin: Denies any rashes, lesions, discoloration Neuro: Denies any headache, lightheadedness, dizziness, fainting, weakness Psych: Denies SI/HI Patient History Medical History Paroxysmal SVT (supraventricular tachycardia) Wears glasses Elevated liver function tests Mixed hyperlipidemia Essential hypertension Ventricular premature beats Palpitations Surgical History Anesthesia History of appendectomy (~1982) S/P cataract extraction No pertinent past surgical history Family History Father Cancer Hypertension Mother Hypertension History of heart disease Sister Stroke Social History household members: spouse Smoking Status: Never smoker alcohol intake: current Smoking Status: Never smoker alcohol intake frequency: 0-2 drinks per day Alcohol type: wine Substance Use Type: does not use Exam Narrative Exam Narrative: General: Cooperative, comfortable, well-developed, not in acute distress HEENT: Normocephalic, atraumatic, PERRLA, normal sclera, eyelids normal, Neck: Active full range of motion, atraumatic Chest: Normal to inspection, negative crepitus, no overlying erythema ecchymosis Respiratory: Normal respiratory effort, not in acute respiratory distress, clear to auscultation bilaterally negative cough, wheeze, tachypnea, rhonchi, rales Cardiology: Regular rate, tachycardia GI/: Normal to inspection, soft, nonrigid, no tenderness to palpation, exam deferred MSK: Full range of active range of motion of all 4 extremities, atraumatic Skin: No rashes lesions noted Neuro: Alert awake oriented x3, moves all 4 extremities spontaneously, cranial nerves intact, able to answer all questions appropriately follows commands appropriately Psych: Cooperative, negative suicidal or homicidal ideations Initial Vital Signs Initial Vital Signs: Vital Signs Temperature 98.2 F 12/11/23 15:16 Pulse Rate 140 H 12/11/23 15:16 Respiratory Rate 18 12/11/23 15:16 Blood Pressure 180/100 H 12/11/23 15:16 Pulse Oximetry 98 12/11/23 15:16 Oxygen Delivery Method Room Air 12/11/23 15:16 Course Orders Ordered: ED Orders 12/11/23 15:21 XR chest 1V Stat EKG-12 Lead Stat 12/11/23 15:30 Complete Blood Count AUTO DIFF Stat Comprehensive Metabolic Panel Stat Lipase Stat Magnesium Stat NT-proBNP (BNP-Adult 18+) Stat PTT Partial Thromboplastin Michael Stat Prothrombin Time INR Stat Troponin & CK Cardiac Panel Stat 12/11/23 16:47 EKG-12 Lead Stat Discontinued Medications Aspirin (Aspirin 81 Mg Chew Tab) 324 mg PO NOW ONE Stop: 12/11/23 15:22 Last Admin: 12/11/23 16:11 Dose: Not Given Documented By: ERICH Magnesium Sulfate (Magnesium Sulfate) 2 gm in 50 mls @ 150 mls/hr IV NOW ONE Stop: 12/11/23 17:27 Last Infusion: 12/11/23 17:45 Dose: Infused Documented By: NIA Co-signed By: WILLIAM Admin: 12/11/23 17:24 Dose: 150 mls/hr Documented By: ERICH Co-signed By: DAVON Vital Signs Vital signs: Vital Signs - 8 hr 12/11/23 15:16 12/11/23 15:49 12/11/23 16:00 Temperature 98.2 F Pulse Rate 140 H 128 H 134 H Respiratory Rate 18 22 22 Blood Pressure 180/100 H Pulse Oximetry 98 97 97 Oxygen Delivery Method Room Air 12/11/23 16:00 12/11/23 16:30 12/11/23 16:30 Temperature Pulse Rate 104 H Respiratory Rate 18 Blood Pressure 167/83 H 175/82 H Pulse Oximetry 97 Oxygen Delivery Method 12/11/23 17:00 12/11/23 17:02 12/11/23 17:02 Temperature Pulse Rate 155 H 132 H Respiratory Rate 24 22 Blood Pressure 202/103 H Pulse Oximetry 97 Oxygen Delivery Method 12/11/23 17:30 12/11/23 17:30 12/11/23 18:00 Temperature Pulse Rate 94 H 82 Respiratory Rate 14 13 Blood Pressure 176/99 H Pulse Oximetry 97 97 Oxygen Delivery Method 12/11/23 18:00 Temperature Pulse Rate Respiratory Rate Blood Pressure 179/96 H Pulse Oximetry Oxygen Delivery Method MDM - Arrhythmia/Palpitations Lab Data 12/11/23 15:30 12/11/23 15:30 Labs: Lab Results 12/11/23 Range/Units 15:30 WBC 10.1 (4.5-11.0) X10^3/uL RBC 5.45 (4.5-5.9) X10^6/uL Hgb 16.7 (13.5-17.5) g/dL Hct 48.2 (41-53) % MCV 88.5 (80-100) fL MCH 30.7 (26-34) PG MCHC 34.7 (30-36) % RDW 13.2 (11.6-14.8) % Plt Count 270 (150-400) X10^3/uL Neut % (Auto) 64.6 (50-75) % Lymph % (Auto) 22.9 L (25-40) % [place] % (Auto) 11.2 (3-14) % Eos % (Auto) 0.6 L (2-4) % Baso % (Auto) 0.7 (0-2) % Neut # (Auto) 6500 (0487-7385) /uL Lymph # (Auto) 2300 (7835-1110) /uL [place]more # (Auto) 1100 H (0-900) /uL Eos # (Auto) 100 (0-450) /uL Baso # (Auto) 100 (0-100) /uL PT 10.5 (9.4-12.5) SECONDS INR 0.9 (0.9-1.3) APTT 33 (25.1-36.5) SECONDS Sodium 132 L (137-145) mmol/L Potassium 3.6 (3.4-5.1) mmol/L Chloride 99 (98-107) mmol/L Carbon Dioxide 21 L (22-32) mmol/L BUN 19 (9-20) mg/dL Creatinine 0.93 (0.66-1.25) mg/dL Estimated GFR > 60 (>60) mL/min BUN/Creatinine Ratio 20.4 (6-22) Glucose 102 (80-110) mg/dL Calcium 9.5 (8.4-10.2) mg/dL Magnesium 1.5 L (1.6-2.3) mg/dL Total Bilirubin 0.9 (0.2-1.3) mg/dL AST 37 (17-59) IU/L ALT 37 (<50) IU/L Alkaline Phosphatase 51 (38-126) U/L Total Creatine Kinase 137 (55-170) U/L Troponin I < 0.012 (0.01-0.034) ng/mL NT-Pro-B Natriuret Pep 50 (<125) pg/mL Total Protein 8.1 (6.3-8.2) g/dL Albumin 4.7 (3.5-5.0) g/dL Globulin 3.4 (1.7-4.1) g/dL Albumin/Globulin Ratio 1.4 (1.0-2.8) Lipase 101 (23-300) U/L Imaging Data Chest x-ray: Radiologist's Impresson: [address] [address] XRay Report Signed Patient: Quinn Keys MR#: [id number] : 1955 Acct:[id number] Age/Sex: 68 / M Date of Service: 12/11/23 Loc: ED Accession Number: [id number] Procedure: XR chest 1V Ordering Provider: Patrick Corado D.O. PROCEDURE: XR CHEST 1V INDICATIONS: chest pain TECHNIQUE: One view of the chest was acquired. COMPARISON: [facility], CHARLENE, XR CHEST 1V, 11/15/2018, 13:32. FINDINGS: Surgical changes and devices: None. Lungs and pleura: Lungs are clear. No pleural effusions or pneumothorax. Mediastinum: Mediastinal contours appear normal. Heart size is normal. Bones and chest wall: No suspicious bony lesions. Overlying soft tissues appear unremarkable. IMPRESSION: No acute cardiopulmonary abnormalities or focal consolidation. ECG Data Attestation: I personally reviewed and interpreted this ECG as follows: Interpretation: EKG interpreted ED physician sinus at 100 beats per minute QTC 441, normal axis, nonspecific ST changes, no STEMI 1652: Repeat EKG interpreted by me SVT at 139 beats per minute QTC [address] changes no STEMI MDM Narrative Medical decision making narrative: Patient 68-year-old male with past medical history hypertension hyperlipidemia presents from home for evaluation of palpitations states it has been a ongoing issue for several months has had outpatient Holter monitors as well as outpatient echoes normal findings, however he states he has not seen a health physics technician. States this has been worked up by his PCP. He comes into the ED today because he says that he saw his heart rate ?high when he was at home. Here patient initially sinus tach at 100 on initial EKG, lab work is showing hypomagnesemia at 1.5. Patient was re-evaluated and noted to be in asymptomatic SVT, attempted vagal with success, however patient then flipped back into SVT, 2 g IV Mag was administered, repeat EKG showing sinus rhythm. Patient was monitored for for approximately 1 hour in the emergency department without reoccurrence of SVT. EKG nonischemic troponin negative patient will be sent home with outpatient follow up with Cardiology 1700: At re-evaluation patient asymptomatic however monitor showing SVT repeat EKG showing this, patient without any chest pain shortness of breath, 1709: When patient was re-evaluated patient now no longer in SVT, order magnesium and monitor patient here Discharge Plan Departure Patient Disposition: Home Clinical Impression: Paroxysmal SVT (supraventricular tachycardia) Activity Restrictions/Additional Instructions: Please follow-up with cardiology and PCP Please read the discharge instructions sheet carefully and bring all papers to all doctor follow-up visits, as it may contain information that your doctor may want to see. Disease processes change and evolve, if your symptoms worsen or if you develop any new symptoms that are concerning to you please return for evaluation. Your evaluation today does not show any evidence of any life-threatening/serious illnesses requiring admission to the hospital or surgery. Please follow-up with your doctor for re-evaluation in approximately 1 day. Seek immediate medical attention for any worrisome symptoms. Prescriptions: No Action metoprolol succinate 25 mg tablet extended release 24 hr 25 mg PO DAILY Qty: 180 3RF amlodipine 10 mg tablet 10 mg PO DAILY Qty: 90 3RF clonazepam 0.5 mg tablet 0.5 mg PO BID Qty: 60 3RF alprazolam 0.25 mg tablet 0.25 mg PO TID PRN (Reason: anxiety) Qty: 10 1RF atorvastatin 20 mg tablet 20 mg PO DAILY Qty: 90 0RF cholecalciferol (vitamin D3) 1 tab PO DAILY multivitamin Tablet 1 tab PO DAILY Co Q-10 1 cap PO DAILY Vitamin B 1 tab PO DAILY spironolactone 25 mg tablet 25 mg PO BID losartan 100 mg tablet 100 mg PO BID Referrals: Avery Mota MD [Physician] - Mychal Daley MD [Primary Care Provider] - Stand Alone Forms: Patient Portal/API
--- NOTE | 2023-12-11 16:47 | EKG_ITS ---
[facility] [id number] [place] [id number] Test Date: 2023-12-11 Pat Name: Quinn Keys Department: [facility] Room: Gender: Male Child Care Nurse: LYNETTE GARCIA : 1955 Requested By: Order Number: [id number] Reading MD: Mychal Daley MD Measurements Intervals [place] Rate: 139 P: NC: QRS: -24 QRSD: 96 T: 13 QT: 308 QTc: 468 Interpretive Statements Supraventricular tachycardia Minimal voltage criteria for LVH, may be normal variant ( [place] product ) Inferior infarct , age undetermined Electronically Signed On 12-11-2023 17:03:11 PDT by Mychal Daley MD
[2023-12-11] MEDS: MAGNESIUM SULFATE 2 GM/50 ML PIGGYBACK IV (17:24)
== END 2023-12-11 18:45 | disposition home or self-care (01) ==
PROVIDERS: Emergency Provider Student in an Organized Health Care Education/Training Program; PCP Internal Medicine
DX: I47.10 Supraventricular tachycardia, unspecified (principal); R07.9 Chest pain, unspecified; I10 Essential (primary) hypertension; E78.5 Hyperlipidemia, unspecified
CPT/HCPCS: 36415; 71045; 80053; 82550; 83690; 83735; 83880; 84484; 85025; 85610; 85730; 93005; 93010; 99284; J3475

== ENCOUNTER → 2024-02-13 13:41 | Outpatient (CLI) | payer MEDICARE, SELFPAY | PROVIDERS: PCP Internal Medicine; Referring Provider Internal Medicine Cardiovascular Disease; Visit Provider Internal Medicine Cardiovascular Disease | DX: E83.42 Hypomagnesemia (principal) | CPT/HCPCS: 36415; 83735 ==

== ENCOUNTER → 2024-05-21 11:17 | Outpatient (CLI) | payer MEDICARE, SELFPAY ==
[2024-05-23 08:36] LABS: Rubeola Measles IgG > 300.0 AU/mL (Immune >16.4)
== END ==
LOC: LAB 11:19
PROVIDERS: PCP Internal Medicine; Referring Provider Internal Medicine; Visit Provider Internal Medicine
DX: Z01.84 Encounter for antibody response examination (principal)
CPT/HCPCS: 36415; 86735; 86762; 86765

== ENCOUNTER → 2024-10-10 11:23 | Outpatient (CLI) | payer MEDICARE, SELFPAY ==
[2024-10-10 13:18] LABS: Alanine Aminotransferase 30 IU/L (<50); Albumin 4.5 g/dL (3.5-5.0); Albumin Globulin Ratio 1.6 (1.0-2.8); Alkaline Phosphatase 46 U/L (38-126); Blood Urea Nitrogen 18 mg/dL (9-20); Calcium 9.0 mg/dL (8.4-10.2); Carbon Dioxide 24 mmol/L (22-32); Chloride 99 mmol/L (98-107); Cholesterol 212 mg/dL (140-199); Estimated Glomerular Filt Rate > 60 mL/min (>60); Globulin 2.8 g/dL (1.7-4.1); Glucose 95 mg/dL (70-99); HDL Cholesterol 79 mg/dL (40-60); HEMOLYSIS < 15 (0-50); Potassium 4.7 mmol/L (3.4-5.1); Sodium 133 mmol/L (137-145); Total Protein 7.3 g/dL (6.3-8.2); Triglycerides 59 mg/dL (35-150)
== END ==
PROVIDERS: PCP Internal Medicine; Referring Provider Internal Medicine; Visit Provider Internal Medicine
DX: E78.2 Mixed hyperlipidemia (principal); Z12.5 Encounter for screening for malignant neoplasm of prostate; I10 Essential (primary) hypertension; R79.89 Other specified abnormal findings of blood chemistry
CPT/HCPCS: 36415; 80053; 80061; G0103

== ENCOUNTER → 2025-02-17 13:04 | Outpatient (CLI) | payer MEDICARE, SELFPAY ==
[2025-02-17 13:48] LABS: Hematocrit 44.5 % (41-53); Hemoglobin 15.2 g/dL (13.5-17.5); Mean Corpuscular HGB Conc 34.2 % (30-36); Mean Corpuscular Hemoglobin 31.0 PG (26-34); Mean Corpuscular Volume 90.9 fL (80-100); Platelet Count 304 X10^3/uL (150-400)
[2025-02-17 14:02] LABS: Blood Urea Nitrogen 20 mg/dL (9-20); Calcium 9.3 mg/dL (8.4-10.2); Carbon Dioxide 26 mmol/L (22-32); Chloride 96 mmol/L (98-107); Cholesterol 235 mg/dL (140-199); Estimated Glomerular Filt Rate > 60 mL/min (>60); Glucose 100 mg/dL (70-99); HDL Cholesterol 99 mg/dL (40-60); HEMOLYSIS < 15 (0-50); Magnesium 1.8 mg/dL (1.6-2.3); Potassium 4.8 mmol/L (3.4-5.1); Sodium 128 mmol/L (137-145); Triglycerides 79 mg/dL (35-150)
== END ==
PROVIDERS: PCP Internal Medicine; Referring Provider Internal Medicine Cardiovascular Disease; Visit Provider Internal Medicine Cardiovascular Disease
DX: E78.5 Hyperlipidemia, unspecified (principal); I47.10 Supraventricular tachycardia, unspecified
CPT/HCPCS: 80048; 80061; 83735; 85027

== ENCOUNTER → 2025-03-06 10:55 | Outpatient (CLI) | payer MEDICARE, SELFPAY ==
[2025-03-06 12:33] LABS: Blood Urea Nitrogen 20 mg/dL (9-20); Calcium 9.2 mg/dL (8.4-10.2); Carbon Dioxide 26 mmol/L (22-32); Chloride 97 mmol/L (98-107); Estimated Glomerular Filt Rate > 60 mL/min (>60); Glucose 102 mg/dL (70-99); HEMOLYSIS < 15 (0-50); Potassium 5.2 mmol/L (3.4-5.1); Sodium 131 mmol/L (137-145)
== END ==
PROVIDERS: PCP Internal Medicine; Referring Provider Internal Medicine Cardiovascular Disease; Visit Provider Internal Medicine Cardiovascular Disease
DX: E87.1 Hypo-osmolality and hyponatremia (principal)
CPT/HCPCS: 36415; 80048

== ENCOUNTER → 2025-03-11 15:20 | Outpatient (CLI) | payer MEDICARE, SELFPAY ==
--- NOTE | 2025-03-11 15:21 | DI.RAD.S_ITS ---
PROCEDURE: XR CHEST 2V INDICATIONS: cough TECHNIQUE: 2 views of the chest were acquired. COMPARISON: [facility], CR, XR CHEST 1V, 12/11/2023, 15:29. [facility], CR, XR CHEST 1V, 11/15/2018, 13:32. FINDINGS: Surgical changes and devices: None. Lungs and pleura: Lungs are clear. No pleural effusions or pneumothorax. Mediastinum: Mediastinal contours are normal. Heart size is normal. Bones and chest wall: No suspicious bony abnormalities. Soft tissues appear unremarkable. IMPRESSION: No acute cardiopulmonary abnormality is seen. Dictated by: Ronald Blanco M.D. on 03/12/2025 at 15:26 Approved by: Ronald Blanco M.D. on 03/12/2025 at 15:26
== END ==
PROVIDERS: PCP Internal Medicine; Referring Provider Internal Medicine; Visit Provider Internal Medicine
DX: R05.9 Cough, unspecified (principal)
CPT/HCPCS: 71046